=== PATIENT | male | born 1975 | race American Indian/Alaskan Native ===

== ENCOUNTER 2019-04-14 09:30 | Emergency (ER) | payer BC ==
[2019-04-14 10:04] VITALS: BP 122/91
--- NOTE | 2019-04-14 12:37 | Emergency Department Report ---
{null, Abscess Boil HPI - HPI Chief Complaint: Rectal Pain Stated Complaint: RECTAL PAIN Time Seen by Provider: 04/14/19 11:30 History: No Fever, No Pain, No Purulent Drainage, No Numbness, No Foreign Body, No Previous History, No Insect Bite HPI: Is a pleasant 44-year-old male presents emergency department chief complaint of a painful bump on his left side of his buttocks for the past 2 weeks. Patient reports the pain is getting bigger and more painful. He denies any known past medical history, current medication use or known allergies to medications. Immunizations are up-to-date. Pain is a 6 out of 10 worse when si tting. Home Medications: Previous Rx's Medication Instructions Recorded Last Taken Type Naproxen 500 mg PO BID #20 tablet 04/14/19 Unknown Rx Sulfamethoxazole/Trimethoprim 1 each PO BID 7 Days #14 tablet 04/14/19 Unknown Rx [Bactrim DS TAB] Allergies/Adverse Reactions: Allergies Allergy/AdvReac Type Severity Reaction Status Date / Time No Known Allergies Allergy Unverified 04/14/19 09:35 ED Review of Systems ROS: Stated complaint: RECTAL PAIN Other details as noted in HPI Comment: All other systems reviewed and negative Constitutional: denies: chills, fever Eyes: denies: eye pain, eye discharge, vision change ENT: denies: ear pain, throat pain Respiratory: denies: cough, shortness of breath, wheezing Cardiovascular: denies: chest pain, palpitations Endocrine: no symptoms reported Gastrointestinal: denies: abdominal pain, nausea, diarrhea Genitourinary: denies: urgency, dysuria Musculoskeletal: denies: back pain, joint swelling, arthralgia Skin: as per HPI, other. denies: rash, lesions Neurological: denies: headache, weakness, paresthesias Psychiatric: denies: anxiety, depression Hematological/Lymphatic: denies: easy bleeding, easy bruising ED Past Medical Hx - Past Medical History Previous Medical History?: No - Surgical History Past Surgical History?: No - Social History Smoking Status: Never Smoker Substance Use Type: None - Medications Home Medications: Home Medications Medication Instructions Recorded Confirmed Last Taken Type Naproxen 500 mg PO BID #20 tablet 04/14/19 Unknown Rx Sulfamethoxazole/Trimethoprim 1 each PO BID 7 Days #14 tablet 04/14/19 Unknown Rx [Bactrim DS TAB] ED Abscess Boil Physical Exam - Exam General: Vital signs noted. No distress. Alert and acting appropriately. Size: 3 cm Exam: Yes Tenderness, Yes Fluctuance, Yes Normal Neurologic Exam, Yes Normal Circulation, No Surrounding Cellulites/Erythema, No Lymphangitis, No Crepitation, No Heart Murmur Exam: Tender fluctuant abscess to the left buttocks well above the rectum. Does not appear to communicate with the rectum. No crepitus. I & D Note - I & D Note I & D Note: The area was first cleaned with Betadine after verbal consent was obtained. I then used 1% lidocaine without epinephrine injected in a wheel of the skin. I then used an 11 blade to make a small stab incision. I then expressed a large amount of copious purulent drainage greater than 30 cc. Patient tolerated this well. I then irrigated and cleaned and inserted quarter inch iodoform packing proximately 3 cm was used. Patient tolerated this very well. There were no complications. Less than 5 mL blood loss. ED Course Vital Signs 04/14/19 10:03 Temperature 97.9 F Pulse Rate 115 H Respiratory 18 Rate Blood Pressure 122/91 [Right] O2 Sat by Pulse 98 Oximetry Critical care attestation.: If time is entered above; I have spent that time in minutes in the direct care of this critically ill patient, excluding procedure time. ED Medical Decision Making - Medical Decision Making Abscess was drained without complications. Area was packed. Recommended return to the ER or remove packing in 2 to 3 days. Warm soapy water soaks 5 minutes every hour. Bactrim and naproxen for pain and recommended outpatient follow-up with primary care for wound check in 2 to 3 days. Return to emerge department any change or worsening symptoms. Patient verbalized understanding of the diagnosis, treatment plan and follow-up instructions and all of his questions were answered. - Differential Diagnosis Abscess, cellulitis, insect bite ED Disposition Clinical Impression: Abscess of buttock, left Disposition: [id number] TO HOME OR SELFCARE Is pt being admited?: No Condition: Stable Instructions: Abscess (ED) Prescriptions: Sulfamethoxazole/Trimethoprim [Bactrim DS TAB] 1 each PO BID 7 Days #14 tablet Naproxen 500 mg PO BID #20 tablet Referrals: PRIMARY CARE, [Primary Care Provider] - 3-5 Days Forms: Work/School Release Form(ED) Time of Disposition: 12:51 }
== END 2019-04-14 12:58 | disposition home or self-care (01) ==
LOC: ED 09:30
DX: L02.31 Cutaneous abscess of buttock (principal); Z79.899 Other long term (current) drug therapy